=== PATIENT | male | born 1985 | race Caucasian/White ===

== ENCOUNTER 2018-11-24 01:54 | Emergency (ER) | payer MEDICAID ==
[~2018-11-24] VITALS: Ht 177.8 cm; Wt 81.6 kg
[2018-11-24 02:00] VITALS: BP 130/75
--- NOTE | 2018-11-24 02:00 | NUR ---
PT AMBULATED TO ROOM 3.
[2018-11-24 02:02] VITALS: BP 130/75
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
[2018-11-24] MEDS ORDERED: CYCLOBENZAPRINE 10 MG TAB PO ONE (02:05)
[2018-11-24] MEDS ORDERED: IBUPROFEN 800 MG TAB PO ONE (02:05)
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
--- NOTE | 2018-11-24 03:05 | NUR ---
Note magalieone in EDM - 11/24/18 at 0306 by [facility] Patient discharged with v/s stable. Written and verbal after care instructions given and explained. Patient alert, oriented and verbalized understanding of instructions. Ambulatory with steady gait. All questions addressed prior to discharge. ID band removed. Patient advised to follow up with PMD and Orthopedics. Rx of [place] and Ibuprofen given. Patient educated on indication of medication including possible reaction and side effects. Opportunity to ask questions provided and answered.
--- NOTE | 2018-11-24 03:05 | NUR ---
Patient discharged with v/s stable. Written and verbal after care instructions given and explained. Patient alert, oriented and verbalized understanding of instructions. Ambulatory with steady gait. All questions addressed prior to discharge. ID band removed. Patient advised to follow up with PMD and Orthopedics. Rx of [place] and Ibuprofen given. Patient educated on indication of medication including possible reaction and side effects. Opportunity to ask questions provided and answered
== END 2018-11-24 03:05 | disposition home or self-care (01) ==
LOC: MED 01:54
DX: S62.396A Other fracture of fifth metacarpal bone, right hand, initial encounter for closed fracture (principal); M54.5 Low back pain; V87.8XXA Person injured in other specified noncollision transport accidents involving motor vehicle (traffic), initial encounter; Y93.89 Activity, other specified; Y92.89 Other specified places as the place of occurrence of the external cause; Y99.8 Other external cause status
CPT/HCPCS: 29125; 73130; 99283; Q0092

== ENCOUNTER 2019-01-16 14:47 | Emergency (ER) | payer MEDICAID ==
[~2019-01-16] VITALS: Ht 177.8 cm; Wt 81.6 kg
[2019-01-16 14:54] VITALS: BP 111/66
--- NOTE | 2019-01-16 14:58 | NUR ---
PT TAKEN TO BED 4.
--- NOTE | 2019-01-16 15:09 | NUR ---
PT C/O PAIN & SWELLING IN LT TESTICLE X2 DAYS. PAIN RADIATES TOWARD GROIN STATES NOT INJURY TO AREA. PT C/O FEVER AND NAUSEA THIS AM. TOOK IBURPROFEN FOR PAIN AT 0800. NO DIFFICULTY URINATING. PT SITTING ON BED, CALM. MEDHX: DENIES
[2019-01-16] MEDS ORDERED: KETOROLAC 60 MG/2 ML VIAL IM ONE (15:15)
[2019-01-16] MEDS ORDERED: IBUPROFEN 800 MG TAB PO ONE (15:20)
--- NOTE | 2019-01-16 15:23 | NUR ---
PT REFUSED TORADOL SHOT. MOTRIN PO GIVEN.
--- NOTE | 2019-01-16 15:27 | NUR ---
US AT BEDSIDE.
[2019-01-16] MEDS ORDERED: cefTRIAXone 250 MG in LIDOCAINE MPF 1% - 5 mL VIAL 0.9 ML IM ONE (16:15)
[2019-01-16] MEDS ORDERED: AZITHROMYCIN 250 MG TAB PO ONE (16:15)
[2019-01-16 16:38] VITALS: BP 111/66
--- NOTE | 2019-01-16 16:39 | NUR ---
Patient discharged with v/s stable. Written and verbal after care instructions given and explained. Patient alert, oriented and verbalized understanding of instructions. Ambulatory with steady gait. All questions addressed prior to discharge. ID band removed. Patient advised to follow up with PMD. Rx of TRAMADOL 50 MG, MOTRIN 800 MG, DOXYCYCLINE 100 MG given. Patient educated on indication of medication including possible reaction and side effects. Opportunity to ask questions provided and answered.
== END 2019-01-16 16:39 | disposition home or self-care (01) ==
LOC: MED 14:47
DX: N45.1 Epididymitis (principal)
CPT/HCPCS: 76870; 96372; 99284; J0696; J2001; Q0092; J1885

== ENCOUNTER 2019-02-24 20:53 | Emergency (ER) | payer MEDICAID ==
[~2019-02-24] VITALS: Ht 177.8 cm; Wt 77.1 kg
[2019-02-24 21:00] VITALS: BP 124/56
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
--- NOTE | 2019-02-24 21:06 | NUR ---
PT AMBULATED TO BED #9
--- NOTE | 2019-02-24 21:09 | NUR ---
Dr. You examining patient.
[2019-02-24] MEDS ORDERED: KETOROLAC 60 MG/2 ML VIAL IM ONE (21:15)
[2019-02-24 22:48] VITALS: BP 124/56
--- NOTE | 2019-02-24 22:48 | NUR ---
Patient discharged with v/s stable. Written and verbal after care instructions given and explained. Patient alert, oriented and verbalized understanding of instructions. Ambulatory with steady gait. All questions addressed prior to discharge. ID band removed. Patient advised to follow up with PMD. CD OF XRAY, Rx of MOTRIN 800MG AND NORCO 5-325MG given. Patient educated on indication of medication including possible reaction and side effects. Opportunity to ask questions provided and answered.
== END 2019-02-24 22:48 | disposition home or self-care (01) ==
LOC: MED 20:53
DX: S62.316A Displaced fracture of base of fifth metacarpal bone, right hand, initial encounter for closed fracture (principal); S62.302A Unspecified fracture of third metacarpal bone, right hand, initial encounter for closed fracture; W22.01XA Walked into wall, initial encounter; Y93.89 Activity, other specified; Y92.89 Other specified places as the place of occurrence of the external cause; Y99.8 Other external cause status
CPT/HCPCS: 29125; 73130; 96372; 99283; Q0092; J1885

== ENCOUNTER 2019-12-09 07:08 | Emergency (ER) | payer MEDICAID ==
[~2019-12-09] VITALS: Ht 177.8 cm; Wt 77.6 kg
[2019-12-09 07:12] VITALS: BP 156/119
--- NOTE | 2019-12-09 07:17 | NUR ---
PT TAKEN TO BED 11.
[2019-12-09] MEDS ORDERED: CIPROFLOXACIN 250 MG TAB PO ONE (07:30)
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
--- NOTE | 2019-12-09 08:39 | NUR ---
PATIENT ELOPED FROM FACILITY. DISCHARGE INSTRUCTIONS NOT GIVEN TO PATIENT. DR. VÁSQUEZ NOTIFIED.
--- NOTE | 2019-12-09 08:47 | NUR ---
PT LEFT WITHOUT DC INSTRUCTIONS
== END 2019-12-09 08:47 | disposition home or self-care (01) ==
LOC: MED 07:08
DX: S91.332A Puncture wound without foreign body, left foot, initial encounter (principal); M79.641 Pain in right hand; W45.0XXA Nail entering through skin, initial encounter; Y93.89 Activity, other specified; Y92.89 Other specified places as the place of occurrence of the external cause; Y99.8 Other external cause status
CPT/HCPCS: 73130; 73630; 90471; 90715; 99284; Q0092

== ENCOUNTER 2020-03-09 16:18 | Emergency (ER) | payer MEDICAID ==
[~2020-03-09] VITALS: Ht 175.3 cm; Wt 73.0 kg
[2020-03-09 16:30] VITALS: BP 109/62
--- NOTE | 2020-03-09 16:38 | NUR ---
34 y/o male from home c/o right hand pain x 3 months. Denies trauma/injury to hand. 10/10 constant throbbing/aching pain. Pt states hand gets "stuck" in a position if held for too long. No swelling/deformities noted. Skin warm, dry, intact. VSS medhx: denies
--- NOTE | 2020-03-09 16:56 | NUR ---
SHANTE Cordero at bedside examining pt
[2020-03-09] MEDS ORDERED: KETOROLAC 60 MG/2 ML VIAL IM ONE (17:05)
[2020-03-09 17:18] VITALS: BP 109/62
--- NOTE | 2020-03-09 17:18 | NUR ---
Patient discharged with v/s stable. Written and verbal after care instructions given and explained. Patient alert, oriented and verbalized understanding of instructions. Ambulatory with steady gait. All questions addressed prior to discharge. ID band removed. Patient advised to follow up with PMD. Rx of Cephalexin 500mg, and Naprosyn 500mg given. Patient educated on indication of medication including possible reaction and side effects. Opportunity to ask questions provided and answered.
== END 2020-03-09 17:18 | disposition home or self-care (01) ==
LOC: MED 16:18
DX: L03.113 Cellulitis of right upper limb (principal); Z98.890 Other specified postprocedural states
CPT/HCPCS: 29125; 96372; 99283; J1885

== ENCOUNTER 2020-04-30 23:53 | Emergency (ER) | payer MEDICAID ==
[~2020-04-30] VITALS: Ht 177.8 cm; Wt 77.1 kg
[2020-05-01 00:57] VITALS: BP 101/76
--- NOTE | 2020-05-01 04:22 | NUR ---
PT LEFT WITHOUT BEING SEEN
--- NOTE | 2020-05-01 04:55 | NUR ---
CALLED UP, AND TALKED TO REGAN PEREZ, REGARDING ABNORMAL RESULT OF HIS CT. TO RETURN BACK TO THE HOSPITAL, TO SEE THE KENNETH
--- NOTE | 2020-05-01 05:30 | NUR ---
HE CALLED BACK AND HE WILL COME TO SEE THE ERMD, WHEN HE HAS RIDE
== END 2020-05-01 04:22 | disposition home or self-care (01) ==
LOC: MED 23:53
DX: R55 Syncope and collapse (principal); Z53.21 Procedure and treatment not carried out due to patient leaving prior to being seen by health care provider
CPT/HCPCS: 70450; 72125; 73030; 99281

== ENCOUNTER 2020-05-01 11:39 | Emergency (ER) | payer MEDICAID ==
[~2020-05-01] VITALS: Ht 177.8 cm; Wt 77.1 kg
[2020-05-01 12:15] VITALS: BP 128/58
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
[2020-05-01] MEDS ORDERED: IBUPROFEN 600 MG TAB PO ONE (14:15)
[2020-05-01] MEDS ORDERED: ACETAMINOPHEN EXTRA STRENGTH 500 MG TAB PO ONE (14:15)
--- NOTE | 2020-05-01 16:10 | NUR ---
Patient to be transferred to [facility]. Is being transferred due to NEED FOR NEURO SURGERY. Receiving facility has accepting physician and available space. ER physician has signed transfer form. Patient or responsible alliance party has agreed to transfer and signed form. Patient belongings inventoried and will be sent with patient. Copy of nursing notes, lab reports, EKG, Physicians Orders and X-rays to be sent with patient. Report called to CANDACE COCHRAN at receiving facility. [facility] ambulance service has been called for transfer. ETA is [phone].
--- NOTE | 2020-05-01 16:33 | NUR ---
[facility] at bedside.
[2020-05-01 16:38] VITALS: BP 118/55
--- NOTE | 2020-05-01 16:38 | NUR ---
Pt has been transferring to [facility] by [facility].
== END 2020-05-01 16:38 | disposition home or self-care (01) ==
LOC: MED 11:39
DX: S12.490A Other displaced fracture of fifth cervical vertebra, initial encounter for closed fracture (principal); F12.90 Cannabis use, unspecified, uncomplicated; F15.90 Other stimulant use, unspecified, uncomplicated; V89.2XXA Person injured in unspecified motor-vehicle accident, traffic, initial encounter; Y93.89 Activity, other specified; Y92.89 Other specified places as the place of occurrence of the external cause; Y99.8 Other external cause status
CPT/HCPCS: 99285

== ENCOUNTER 2021-05-08 04:15 | Emergency (ER) | payer MEDICAID ==
[~2021-05-08] VITALS: Ht 175.3 cm; Wt 81.2 kg
[2021-05-08 04:20] VITALS: BP 142/78
--- NOTE | 2021-05-08 04:20 | NUR ---
TO BED AMBULATORY
--- NOTE | 2021-05-08 04:32 | NUR ---
Dr. You examining patient.
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
[2021-05-08] MEDS ORDERED: IBUP-2213 PO (04:46)
--- NOTE | 2021-05-08 04:46 | NUR ---
PT STATED HE DID NOT FEEL COMFORTABLE BEING INSIDE ER D/T COVID, STATED HE WILL WAIT OUTSIDE.
[2021-05-08 04:50] VITALS: BP 142/78
== END 2021-05-08 04:50 | disposition home or self-care (01) ==
LOC: MED 04:15
DX: G89.29 Other chronic pain (principal); M54.9 Dorsalgia, unspecified; M54.2 Cervicalgia; F12.10 Cannabis abuse, uncomplicated
CPT/HCPCS: 99282